=== PATIENT | male | born 1960 | race Caucasian/White ===

== ENCOUNTER 2022-11-18 07:07 | Outpatient (CLI) | payer BC, OTHER ==
[~2022-11-18] VITALS: Ht 165.1 cm; Wt 80.2 kg
[2022-11-18] MEDS ORDERED: PRILOSEC 20MG20 MG PO (08:01)
[2022-11-18] MEDS ORDERED: TRICOR 48MG48 MG PO (08:01)
[2022-11-18] MEDS ORDERED: LIPITOR20 MG (08:02)
[2022-11-18 08:05] LABS: HEMATOCRIT 40.3 % (42.0-52.0); HEMOGLOBIN 13.4 g/dl (13.5-18.0); MEAN CELL VOLUME 84 fl (80.0-100.0); MEAN CORPUSCULAR HEMOGLOBIN 28 pg (27-31); MEAN CORPUSCULAR HGB CONC 33 g/dl (33.0-37.0); MEAN PLATELET VOLUME 9.5 fl (7.4-10.4); PLATELET COUNT 121 K/mm3 (130-400); RED BLOOD COUNT 4.79 M/mm3 (4.20-5.60); REDCELL DISTRIBUTION WIDTH-CV 14.5 % (11.5-14.5)
[2022-11-18 08:18] VITALS: BP 119/75; PULSE 71; TEMP 97.1
[2022-11-18 08:33] LABS: LYMPHOCYTE 80 % (20.0-51.0); NEUTROPHILS 18 % (42.0-75.2)
[2022-11-18 08:37] LABS: PLATELET ESTIMATE DECREASED (NORMAL)
[2022-11-18 08:53] LABS: ALBUMIN 4.1 gm/dL (3.4-4.8); BILIRUBIN,TOTAL 0.4 mg/dL (0.2-1.2); CALCIUM 8.9 mg/dL (8.4-10.2); CREATININE, serum 1.33 mg/dL (0.72-1.25); POTASSIUM 4.1 mmol/L (3.5-4.5); TOTAL PROTEIN 6.2 gm/dL (6.2-8.1)
[2022-11-18 09:40] VITALS: BP 104/63; PULSE 78; TEMP 97.3
--- NOTE | 2022-11-18 09:40 | NUR ---
PATIENT ARRIVED BACK TO BAY 7 FOLLOWING PROCEDURE. PATIENT DROWSY AND ORIENTED, DENIES PAIN AND NAUSEA. BREATHING REGULAR AND UNLABORED. SEE CHART FOR VITAL SIGNS. NURSE HANDOFF COMPLETED IN ROOM. 4X4 WITH LARGE BANDAID PRESENT TO RIGHT HIP. DRESSING CLEAN, DRY AND INTACT. CALL LIGHT IN REACH. PATIENT SPOUSE JARRELL PRESENT IN ROOM.
[2022-11-18 09:45] VITALS: BP 106/68; PULSE 74
[2022-11-18 10:00] VITALS: BP 109/68; PULSE 68
--- NOTE | 2022-11-18 10:00 | NUR ---
PATIENT ALERT AND ORIENTED, DENIES PAIN AND NAUSEA. PATIENT HAD APPLE JUICE AND SALTINES, BOTH TOLERATED WELL.
[2022-11-18 10:24] VITALS: BP 99/60; PULSE 61
--- NOTE | 2022-11-18 10:24 | NUR ---
PATIENT AMBULATED TO RESTROOM WITH STEADY GAIT AND VOIDED WITHOUT DIFFICULTY. DISCHARGE TEACHING COMPLETED WITH PRINTED EDUCATION AND INSTRUCTIONS SENT HOME WITH PATIENT. PATIENT AND JARRELL VERBALIZED UNDERSTANDING OF TEACHING. IV REMOVED. PATIENT CHANGED INTO PERSONAL CLOTHING AND DISCHARGED HOME WITH [facility].
[2022-11-19 09:02] LABS: KAPPA FREE LIGHT CHAIN-SERUM 25.76 mg/L (()); KAPPA LAMBDA RATIO 2.98 ratio (()); LAMDA FREE LIGHT CHAIN SERUM 8.64 mg/L (())
[2022-11-19 16:18] LABS: A/G RATIO (IEP) 1.44 (()); ALBUMIN (IEP) 3.7 g/dL (3.4-4.7); ALPHA 1 GLOBULINS (IEP) 0.2 g/dL (0.1-0.3); BETA GLOBULINS (IEP) 0.9 g/dL (0.7-1.2); GAMMA GLOBULINS (IEP) 0.5 g/dL (0.6-1.6)
== END 2022-11-18 10:30 | disposition home or self-care (01) ==
LOC: SDCO 07:07
PROVIDERS: Pathology Anatomic Pathology & Clinical Pathology
DX: C91.10 Chronic lymphocytic leukemia of B-cell type not having achieved remission (principal)
CPT/HCPCS: J2704; J3010; J7120